=== PATIENT | female | born 1955 | race Caucasian/White ===

== ENCOUNTER → 2017-05-28 | Day surgery (SDC) | payer OTHER ==
[~2017-05-28] VITALS: Ht 160 cm; Wt 95.3 kg
[~2017-05-28] MED LIST: IBU800 MG PO; KEFLEX500 MG PO; PERCOCET 325 MG1 TA2 PO
--- NOTE | 2017-05-28 18:17 | Operative Report ---
Operative/Inv Procedure Report Surgery Date: 05/28/17 Name of Procedure: right ESWL/fluoroscopy Pre-Operative Diagnosis: right colic with right stones (8mm) Post-Operative Diagnosis: same Estimated Blood Loss: none Surgeon/Circus Train Supervisor: KODI APONTE MD Anesthesia: moderate sedation Specimens: none Complications: none Operative/Procedure Note Note: The patient was taken to the operating room placed on the OR table in supine position. Timeout was performed, with the patient awake, in order to confirm correct procedure, laterality, anesthesia, and other pertinent perioperative information. After adequate anesthesia and antibiotics, the patient was then positioned over the ESWL table cutout overlying the treatment dome. Fluoroscopy , using AP and oblique views, as well as renal ultrasound, or performed in order to locate the right renal stone. The position of the stone was optimized, by positioning in the middle of the ESWL crosshairs. The stone was measured to be approximately 8 mm in size. ESWL was initiated at low power, and after 200 shockwaves delivered, noting the patient's tolerance to the shockwaves, the power was increased to maximum. At the end of 2500 shockwaves, fluoroscopy confirms the change in consistency of the stone, indicating shattering of the stone. The patient tolerated the procedures well, and was taken to the recovery room in satisfactory condition. The patient is discharged home with pain medication, and follow-up instructions with in 2-3 weeks' time. Discharge Disposition: Same Day Admissions CC: KODI APONTE MD
== END ==
LOC: STS 03:09
DX: N20.0 Calculus of kidney (principal); Z87.442 Personal history of urinary calculi
CPT/HCPCS: J2250